=== PATIENT | male | born 1985 | race Asian ===

== ENCOUNTER 2018-01-03 06:43 | Inpatient (IN) | payer SELFPAY ==
[~2018-01-03] VITALS: Ht 172.7 cm; Wt 79.0 kg
[2018-01-03 07:28] LABS: Basophils # (auto) 0.1 uL; Basophils % (auto) 0.7 % (0.0-2.0); Eosinophils # (auto) 0.5 uL; Eosinophils % (auto) 6.7 % (0.0-7.0); Hematocrit 50.1 % (41.0-53.0); Hemoglobin 17.6 g/dL (13.5-17.5); Lymphocytes % (auto) 25.2 % (10.0-50.0); Mean Corpuscular Hemoglobin 32.4 pg (28.0-32.0); Mean Corpuscular Hgb Conc. 35.2 g/dL (32.0-36.0); Mean Corpuscular Volume 91.9 fL (80.0-100.0); Monocytes # (auto) 0.6 uL; Monocytes % (auto) 7.9 % (0.0-12.0); Neutrophils # (auto) 4.7 uL; Neutrophils % (auto) 59.5 % (37.0-80.0); Nucleated Red Blood Cells % 0.4 %; Platelet Count (auto) 325 10^3/uL (140-450); Red Blood Cells 5.45 10^6/uL (4.5-5.90); Red Cell Distribution Width 13.3 % (11.8-14.3); White Blood Cell 7.9 10^3/uL (4.4-10.8)
[2018-01-03 07:36] LABS: Urine Bacteria NONE SEEN /hpf (None Seen); Urine Blood TRACE /uL (Negative); Urine Mucus FEW (None Seen); Urine Specific Gravity 1.029 (1.001-1.035); Urine WBC 1 /hpf (0 - 3)
[2018-01-03 08:01] LABS: Albumin 4.1 g/dL (3.4-5.0); BUN/Creatinine Ratio 13.7; Bilirubin, Total 0.6 mg/dL (0.2-1.0); Calcium 9.1 mg/dL (8.5-10.1); Magnesium 2.6 mg/dL (1.6-2.6); Potassium 4.1 mmol/L (3.5-5.1); Total Protein 8.2 g/dL (6.4-8.2)
[2018-01-03] MEDS ORDERED: SODIUM CHLORIDE 0.9% 1,000 ML IV ONE (08:36)
[2018-01-03] MEDS ORDERED: ONDANSETRON HCL 4 MG/2 ML VIAL IV ONE (08:45)
[2018-01-03] MEDS ORDERED: MORPHINE SULFATE 4 MG/ML SYR/VIAL IV ONE (08:45)
[2018-01-03] MEDS ORDERED: PIPERACILLIN-TAZOB 3.375GM 100 ML IV ONE (09:45)
[2018-01-03] MEDS ORDERED: LORazepam 2MG/ML-1ML VIAL IV PRN (10:15)
[2018-01-03] MEDS ORDERED: cefTRIAXone 1GM/10ml IVPUSH 10 ML IV ONE (10:15)
[2018-01-03] MEDS ORDERED: NITROGLYCERIN 0.4 MG SL TAB SL PRN (10:15)
[2018-01-03] MEDS ORDERED: ONDANSETRON HCL 4 MG/2 ML VIAL IV PRN (10:15)
[2018-01-03] MEDS ORDERED: MORPHINE SULFATE 4 MG/ML SYR/VIAL IV PRN ×3 (10:15)
[2018-01-03 10:25] LABS: CRP High Sensitivity 0.09 mg/dL (< 0.3)
[2018-01-03 10:41] LABS: INR 0.95 (0.9-1.15); Partial Thromboplastin Time 32.9 sec (23.78-33.04); Prothrombin Time 10.2 sec (9.27-12.13)
[2018-01-03] MEDS: FAMOTIDINE (10MG/ML) 2ML VL IV SCH ×2 (11:01→21:32)
[2018-01-03] MEDS: SODIUM CHLORIDE 0.9% 1,000 ML IV SCH ×2 (11:01→21:32)
[2018-01-03] MEDS: metroNIDAZOLE 500MG/100ML 100 ML IV SCH ×3 (12:06→23:28)
[2018-01-03 13:30] VITALS: BP 120/74
[2018-01-03 17:10] VITALS: BP 115/65
[2018-01-03 22:00] VITALS: BP 112/62
[2018-01-04 05:00] VITALS: BP 97/60
[2018-01-04] MEDS: SODIUM CHLORIDE 0.9% 1,000 ML IV SCH ×2 (05:54→16:01)
[2018-01-04] MEDS: metroNIDAZOLE 500MG/100ML 100 ML IV SCH ×3 (05:54→17:49)
[2018-01-04 06:21] LABS: Albumin 3.4 g/dL (3.4-5.0); Bilirubin, Total 0.9 mg/dL (0.2-1.0); Calcium 8.2 mg/dL (8.5-10.1); Potassium 3.4 mmol/L (3.5-5.1); Total Protein 6.7 g/dL (6.4-8.2)
[2018-01-04 06:59] LABS: Basophils # (auto) 0.1 uL; Basophils % (auto) 0.9 % (0.0-2.0); Eosinophils # (auto) 0.4 uL; Eosinophils % (auto) 5.7 % (0.0-7.0); Hematocrit 46.4 % (41.0-53.0); Hemoglobin 16.4 g/dL (13.5-17.5); Lymphocytes # (auto) 1.8 uL; Lymphocytes % (auto) 28.3 % (10.0-50.0); Mean Corpuscular Hemoglobin 32.5 pg (28.0-32.0); Mean Corpuscular Hgb Conc. 35.4 g/dL (32.0-36.0); Mean Corpuscular Volume 91.9 fL (80.0-100.0); Monocytes # (auto) 0.5 uL; Monocytes % (auto) 7.5 % (0.0-12.0); Neutrophils # (auto) 3.6 uL; Neutrophils % (auto) 57.6 % (37.0-80.0); Nucleated Red Blood Cells % 0.2 %; Platelet Count (auto) 281 10^3/uL (140-450); Red Blood Cells 5.05 10^6/uL (4.5-5.90); Red Cell Distribution Width 12.7 % (11.8-14.3); White Blood Cell 6.2 10^3/uL (4.4-10.8)
[2018-01-04 08:45] VITALS: BP 95/56
[2018-01-04] MEDS: FAMOTIDINE (10MG/ML) 2ML VL IV SCH ×2 (09:28→21:27)
[2018-01-04] MEDS: cefTRIAXone 1GM/10ml IVPUSH 10 ML IV SCH (09:28)
[2018-01-04] MEDS ORDERED: POTASSIUM CHL 10 Meq TABLET PO ONE (11:45)
[2018-01-04 12:25] VITALS: BP 101/72
[2018-01-04 16:56] VITALS: BP 105/67
[2018-01-04 22:02] VITALS: BP 127/77
[2018-01-05] MEDS: metroNIDAZOLE 500MG/100ML 100 ML IV SCH ×3 (00:19→12:00)
[2018-01-05 05:12] VITALS: BP 103/57
[2018-01-05] MEDS: SODIUM CHLORIDE 0.9% 1,000 ML IV SCH ×2 (06:17→12:01)
[2018-01-05 07:43] LABS: Basophils # (auto) 0.1 uL; Eosinophils # (auto) 0.4 uL; Eosinophils % (auto) 6.3 % (0.0-7.0); Hematocrit 46.4 % (41.0-53.0); Hemoglobin 16.4 g/dL (13.5-17.5); Lymphocytes # (auto) 2.1 uL; Lymphocytes % (auto) 31.6 % (10.0-50.0); Mean Corpuscular Hemoglobin 32.3 pg (28.0-32.0); Mean Corpuscular Hgb Conc. 35.3 g/dL (32.0-36.0); Mean Corpuscular Volume 91.4 fL (80.0-100.0); Monocytes # (auto) 0.6 uL; Monocytes % (auto) 9.1 % (0.0-12.0); Neutrophils # (auto) 3.4 uL; Nucleated Red Blood Cells % 0.2 %; Platelet Count (auto) 307 10^3/uL (140-450); Red Blood Cells 5.08 10^6/uL (4.5-5.90); Red Cell Distribution Width 12.9 % (11.8-14.3); White Blood Cell 6.6 10^3/uL (4.4-10.8)
[2018-01-05 09:00] VITALS: BP 106/69
[2018-01-05] MEDS: FAMOTIDINE (10MG/ML) 2ML VL IV SCH (09:46)
[2018-01-05] MEDS: cefTRIAXone 1GM/10ml IVPUSH 10 ML IV SCH (09:47)
[2018-01-05 13:12] VITALS: BP 105/68
== END 2018-01-05 13:54 | disposition home or self-care (01) | DRG 446 ==
LOC: ER 06:45 → TELE 06:46 → TELE-EAST 15:14
PROVIDERS: ADMIT Internal Medicine; ATTEND Internal Medicine
DX: K80.00 Calculus of gallbladder with acute cholecystitis without obstruction (principal); E86.0 Dehydration; F12.90 Cannabis use, unspecified, uncomplicated; E87.6 Hypokalemia; Z80.0 Family history of malignant neoplasm of digestive organs
CPT/HCPCS: 36415; 71045; 74176; 78226; 80053; 81001; 82150; 83605; 83690; 83735; 84132; 85025; 85610; 85730; 86141; 87040; 96361; 96374; 96375; J0696; J2405; J2543; J3490